=== PATIENT | female | born 1935 | race African-American/Black ===

== ENCOUNTER 2018-11-12 19:32 | Emergency (ER) | payer MEDICAID, MEDICARE ==
[~2018-11-12] VITALS: Ht 177.8 cm; Wt 77.1 kg
[2018-11-12] MEDS ORDERED: LOSARTAN POTASS50 MG ORAL (19:38)
[2018-11-12] MEDS ORDERED: AMLODIPINE BESY10 MG ORAL (19:38)
--- NOTE | 2018-11-12 19:46 | Emergency Room Report ---
History of Present Illness General Chief Complaint: Dizziness Source: Patient Present Illness HPI Patient presents with dizziness. She had mild headache earlier this morning. She denies any chest pain or palpitations. She was recently restarted on antihypertensive medication by her doctor during the week. She was incarcerated and during that time all blood pressure treatment had been stopped. She was released July 22. From July until recently she was not treated for high blood pressure. She denies any history of heart disease or renal failure or prior strokes. She denies any unilateral weakness or numbness recently. She believes her blood pressure is the problem. No fevers, chills, nausea, vomiting, diarrhea, dysuria, abdominal pain, shortness of breath, depression, visual changes. Allergies: Coded Allergies: No Known Allergies (Unverified , 11/12/18) Patient History Past Medical History: see triage record Social History: Denies: smoking - Prior, alcohol use, drug use Social History Narrative from home Now: No Reviewed Nursing Documentation: PMH: Agreed; PSxH: Agreed Nursing Documentation-PMH Hx Hypertension: Yes Review of Systems All Other Systems: negative except mentioned in HPI Physical Exam Vital Signs Date Time Temp Pulse Resp B/P (MAP) Pulse Ox O2 Delivery O2 Flow Rate FiO2 11/12/18 19:31 99.0 88 20 188/104 (132) 100 Sp02 EP Interpretation: reviewed, normal General Appearance: well appearing, no apparent distress, GCS 15 Head: normocephalic, atraumatic Eyes: bilateral eye normal inspection, bilateral eye PERRL, bilateral eye EOMI ENT: moist mucus membranes Neck: supple Respiratory: lungs clear, normal breath sounds Cardiovascular #1: regular rate, rhythm Cardiovascular #2: 2+ radial (R) Gastrointestinal: normal inspection, normal bowel sounds, non tender, no mass, non-distended Musculoskeletal: back normal, gait/station normal, normal range of motion, other - Degenerative arthritis hands Neurologic: alert, oriented x3, motor strength/tone normal, DTRs symmetric, sensory intact, cerebellar normal, normal gait, speech normal Psychiatric: mood/affect normal Skin: normal inspection, warm/dry Medical Decision Making Diagnostic Impression: Primary Impression: HTN (hypertension) Qualified Codes: I10 - Essential (primary) hypertension Additional Impression: Dizziness ER Course Patient presents with hypertension and dizziness. Differential includes acute microinfarction, arrhythmia, renal failure, electrolyte imbalance amongst others. Patient will be evaluated with EKG, chest x-ray and labs. She is nonfocal neurologic exam at this time and CT the head is not indicated. Blood pressure will be followed and will be treated if necessary. EKG without injury. CXR slight tortuous aorta (WNL), clips/calcifications. Other labs unremarkable. BP better without treatment. Discussed blood pressure control with patient and labile hypertension. Also discussed the need for outpatient follow-up. No medical emergency at this time. Patient stable for outpatient observation and treatment. Laboratory Tests Test 11/12/18 20:00 White Blood Count 5.4 K/UL (4.8-10.8) Red Blood Count 4.77 M/UL (4.20-5.40) Hemoglobin 12.9 G/DL (12.0-16.0) Hematocrit 40.2 % (37.0-47.0) Mean Corpuscular Volume 84 FL (80-99) Mean Corpuscular Hemoglobin 27.0 PG (27.0-31.0) Mean Corpuscular Hemoglobin Concent 32.0 G/DL (32.0-36.0) Red Cell Distribution Width 14.0 % (11.6-14.8) Platelet Count 243 K/UL (150-450) Mean Platelet Volume 6.4 FL (6.5-10.1) L Neutrophils (%) (Auto) 41.3 % (45.0-75.0) L Lymphocytes (%) (Auto) 40.5 % (20.0-45.0) Monocytes (%) (Auto) 10.7 % (1.0-10.0) H Eosinophils (%) (Auto) 5.1 % (0.0-3.0) H Basophils (%) (Auto) 2.5 % (0.0-2.0) H Prothrombin Time 10.0 SEC (9.30-11.50) Prothrombin Time INR 0.9 (0.9-1.1) PTT 26 SEC (23-33) Urine Color Pale yellow Urine Appearance Clear Urine pH 8 (4.5-8.0) Urine Specific [place] 1.010 (1.005-1.035) Urine Protein Negative (NEGATIVE) Urine Glucose (UA) Negative (NEGATIVE) Urine Ketones Negative (NEGATIVE) Urine Blood Negative (NEGATIVE) Urine Nitrite Negative (NEGATIVE) Urine Bilirubin Negative (NEGATIVE) Urine Urobilinogen Normal MG/DL (0.0-1.0) Urine Leukocyte Esterase Negative (NEGATIVE) Sodium Level 142 MMOL/L (136-145) Potassium Level 3.4 MMOL/L (3.5-5.1) L Chloride Level 104 MMOL/L (98-107) Carbon Dioxide Level 28 MMOL/L (21-32) Anion Gap 10 mmol/L (5-15) Blood Urea Nitrogen 17 mg/dL (7-18) Creatinine 0.9 MG/DL (0.55-1.30) Estimate Glomerular Filtration Rate mL/min (>60) Glucose Level 105 MG/DL (74-106) Calcium Level 8.9 MG/DL (8.5-10.1) Total Bilirubin 0.2 MG/DL (0.2-1.0) Aspartate Amino Transferase (AST) 19 U/L (15-37) Alanine Aminotransferase (ALT) 23 U/L (12-78) Alkaline Phosphatase 79 U/L (46-116) Total Creatine Kinase 104 U/L (26-308) Troponin I 0.000 ng/mL (0.000-0.056) Pro-B-Type Natriuretic Peptide 121 pg/mL (0-125) Total Protein 8.2 G/DL (6.4-8.2) Albumin 3.7 G/DL (3.4-5.0) Globulin 4.5 g/dL Albumin/Globulin Ratio 0.8 (1.0-2.7) L Urine Opiates Screen Negative (NEGATIVE) Urine Barbiturates Screen Negative (NEGATIVE) Phencyclidine (PCP) Screen Negative (NEGATIVE) Urine Amphetamines Screen Negative (NEGATIVE) Urine Benzodiazepines Screen Negative (NEGATIVE) Urine Cocaine Screen Negative (NEGATIVE) Urine Marijuana (THC) Screen Negative (NEGATIVE) EKG Diagnostic Results Rate: normal Rhythm: NSR ST Segments: no acute changes - LVH Rhythm Strip Diag. Results EP Interpretation: yes Rhythm: NSR, no PVC's, no ectopy Chest X-Ray Diagnostic Results Chest X-Ray Diagnostic Results : Chest X-Ray Ordered: Yes # of Views/Limited/Complete: 1 View Indication: Other EP Interpretation: Yes Interpretation: no consolidation, no effusion, no pneumothorax Impression: No acute disease Electronically Signed by: Electronically signed by Miguel Becerra MD Last Vital Signs Date Time Temp Pulse Resp B/P (MAP) Pulse Ox O2 Delivery O2 Flow Rate FiO2 11/12/18 22:26 99.0 20 148/87 100 Room Air 11/12/18 19:50 88 Status: improved Disposition: HOME, SELF-CARE Condition: Improved Scripts Losartan Potassium (Losartan Potassium) 25 Mg Tablet 25 MG PO DAILY, #30 TAB increase the total dosing to 75 mg daily (you already have 50 mg tabs) Prov: Miguel Becerra MD 11/12/18 Miguel Becerra MD Nov 12, 2018 19:46
[2018-11-12 19:50] VITALS: BP 156/98
--- NOTE | 2018-11-12 19:55 | NUR ---
ED Nurse Note: Patient was brought by ambulance from home due to diziness, weakness, high BP. Per patient she was noncopliance with BP medications for two months. Patient' BP upon arrival 156/89. AAO x4, VSS at this time, skin is dry, warm to touch.
[2018-11-12 20:11] LABS: BASOPHILS % (AUTO) 2.5 % (0.0-2.0); EOSINOPHILS % (AUTO) 5.1 % (0.0-3.0); HEMATOCRIT 40.2 % (37.0-47.0); HEMOGLOBIN 12.9 G/DL (12.0-16.0); LYMPHOCYTES % (AUTO) 40.5 % (20.0-45.0); MEAN CORPUSCULAR VOLUME 84 FL (80-99); MONOCYTES % (AUTO) 10.7 % (1.0-10.0); NEUTROPHILS % (AUTO) 41.3 % (45.0-75.0); PLATELET COUNT 243 K/UL (150-450); RED BLOOD COUNT 4.77 M/UL (4.20-5.40); WHITE BLOOD COUNT 5.4 K/UL (4.8-10.8)
--- NOTE | 2018-11-12 20:42 | Diagnostic Imaging Report ---
EXAM: XR Chest, 1 View CLINICAL HISTORY: DIZZY TECHNIQUE: Frontal view of the chest. COMPARISON: No relevant prior studies available. FINDINGS: Lungs: Unremarkable. No consolidation. Pleural space: Unremarkable. No pneumothorax. Heart: Unremarkable. No cardiomegaly. Mediastinum: Unremarkable. Bones/joints: Unremarkable. IMPRESSION: No acute abnormality in the lungs
[2018-11-12 20:43] LABS: APPEARANCE,URINE CLEAR; BILIRUBIN, URINE NEGATIVE (NEGATIVE); COLOR,URINE PALE YELLOW; GLUCOSE, URINE (UA) NEGATIVE (NEGATIVE); INR 0.9 (0.9-1.1); KETONES,URINE NEGATIVE (NEGATIVE); LEUKOCYTE ESTERASE ,URINE NEGATIVE (NEGATIVE); NITRITE,URINE NEGATIVE (NEGATIVE); PH,URINE 8 (4.5-8.0); PROTEIN,URINE NEGATIVE (NEGATIVE); UROBILINOGEN,URINE NORMAL MG/DL (0.0-1.0)
[2018-11-12 20:49] LABS: ANION GAP 10 mmol/L (5-15); BLOOD UREA NITROGEN 17 mg/dL (7-18); CALCIUM 8.9 MG/DL (8.5-10.1); CARBON DIOXIDE 28 MMOL/L (21-32); CHLORIDE 104 MMOL/L (98-107); CREATININE 0.9 MG/DL (0.55-1.30); POTASSIUM 3.4 MMOL/L (3.5-5.1); SODIUM 142 MMOL/L (136-145)
[2018-11-12 20:59] LABS: ALANINE AMINOTRANSFERASE 23 U/L (12-78); ALBUMIN 3.7 G/DL (3.4-5.0); ALBUMIN/GLOBULIN RATIO 0.8 (1.0-2.7); ALKALINE PHOSPHATASE 79 U/L (46-116); ASPARTATE AMINO TRANSFERASE 19 U/L (15-37); BILIRUBIN,TOTAL 0.2 MG/DL (0.2-1.0); CREATINE KINASE 104 U/L (26-308)
[2018-11-12] MEDS ORDERED: Losartan 25mg tab ORAL ONE ×2 (22:00→22:15)
[2018-11-12] MEDS ORDERED: LOSARTAN POTASS25 M1 PO (22:15)
--- NOTE | 2018-11-12 22:15 | NUR ---
ED Nurse Note: Per Dr Becerra took out 50 mg of Losartan from the [facility]. After Dr Becerra changed the order to 25 mg, will return 25mg of Losartan to [facility].
[2018-11-12 22:26] VITALS: BP 148/87
--- NOTE | 2018-11-12 22:27 | NUR ---
ER DISCHARGE NOTE: Patient is cleared to be discharged per ERMD, pt is aox4, on room air, with stable vital signs. pt was given dc and prescription instructions, pt was able to verbalize understanding, pt id band and iv site removed without complications. pt is able to ambulate with steady gait. pt took all belongings.
== END 2018-11-12 22:27 | disposition home or self-care (01) ==
LOC: EDBD 19:32 → EMR 20:09
DX: R42 Dizziness and giddiness (principal); I10 Essential (primary) hypertension
CPT/HCPCS: 36415; 71045; 80053; 80307; 81003; 82550; 83880; 84484; 85025; 85610; 85730; 93005; 99284